=== PATIENT | male | born 1995 | race Caucasian/White ===

== ENCOUNTER 2018-09-21 08:29 | Inpatient (IN) | payer OTHER ==
[2018-09-21 09:11] VITALS: BMI 21.2
--- NOTE | 2018-09-21 09:31 | HP ---
CIWA Score Nausea/Vomitin-Cont. Nausea/Vomiting Muscle Tremors: 1-None Visible, but [place] Anxiety: 2 Agitation: 1-Slight > Activity Paroxysmal Sweats: 1-Minimal Palms Moist Orientation: 0-Oriented Tacttile Disturbances: 0-None Auditory Disturbances: 0-None Visual Disturbances: 0-None Headache: 0-None Present CIWA-Ar Total Score: 12 - Admission Criteria OASAS Guidelines: Admission for Medically Managed Detox: Requires at least one of the followin. CIWA greater than 12 2. Seizures within the past 24 hours 3. Delirium tremens within the past 24 hours 4. Hallucinations within the past 24 hours 5. Acute intervention needed for co occurring medical disorder 6. Acute intervention needed for co occurring psychiatric disorder 7. Severe withdrawal that cannot be handled at a lower level of care (continued vomiting, continued diarrhea, abnormal vital signs) requiring intravenous medication and/or fluids 8. Patient presents the following: CIWA greater than 12 Admission Criteria Met: Admission criteria met Admission ROS S - [facility] Chief Complaint: I need to stop using alchol and crack and get my life together Allergies/Adverse Reactions: Allergies Allergy/AdvReac Type Severity Reaction Status Date / Time divalproex sodium Allergy Severe Verified 09/21/18 08:51 [From Depakote] Penicillins Allergy Severe Verified 09/21/18 08:51 amoxicillin Allergy Intermediate Rash Verified 09/21/18 08:49 History of Present Illness: 23 y/o m pt with a 10 yr h/o of alcohol use/dependency. pt states he began drinking heavily at age 15. drinking 6-12 beers/day he was also occasionally drinking 1-2 shoots of vodka. pt denies any blackouts or sz's but states he has developed shakes and sweats in the morning . Pt has attended detox and rehab on 2-3 occasions last being August 2018. Now pt is seeking to d/c alcohol use. Exam Limitations: No Limitations - Ebola screening Have you traveled outside of the country in the last 21 days: No Have you had contact with anyone from an Ebola affected area: No Do you have a fever: No - Review of Systems Constitutional: Night Sweats EENT: reports: No Symptoms Reported Respiratory: reports: No Symptoms reported Cardiac: reports: No Symptoms Reported GI: reports: Vomiting (assoc with etoh intake), Indigestion : reports: No Symptoms Reported Musculoskeletal: reports: No Symptoms Reported Integumentary: reports: Sweating Neuro: reports: Tremors Endocrine: reports: No Symptoms Reported Hematology: reports: No Symptoms Reported Psychiatric: reports: Agitated, Anxious, Depressed Other Systems: Reviewed and Negative Patient History - Patient Medical History Hx Anemia: No Hx Asthma: No Hx Chronic Obstructive Pulmonary Disease (COPD): No Hx Cancer: No Hx Cardiac Disorders: No Hx Congestive Heart Failure: No Hx Hypertension: No Hx Hypercholesterolemia: No Hx Pacemaker: No HX Cerebrovascular Accident: No Hx Seizures: No Hx Dementia: No Hx Diabetes: No Hx Gastrointestinal Disorders: No Hx Liver Disease: No Hx Genitourinary Disorders: No Hx Sexually Transmitted Disorders: No Hx Renal Disease (ESRD): No Hx Thyroid Disease: No Hx Human Immunodeficiency Virus (HIV): No (neg. on July) Hx Hepatitis C: No Hx Depression: Yes (welbutrin 150mg daily ) Hx Suicide Attempt: No Hx Bipolar Disorder: Yes Hx Schizophrenia: No Other Medical History: legally blind OS -congenital - Patient Surgical History Hx Genitourinary Surgery: Yes (repair of undesended tesicles - mila at age 10 ) Other Surgical History: cryosurgery OS - PPD History Previous Implant?: Yes Documented Results: Negative w/o proof Implanted On Prior [facility] Admission?: No PPD to be Administered?: Yes - Reproductive History Patient is a Female of Child Bearing Age (11 -55 yrs old): No - Smoking Cessation Smoking history: Current every day smoker Have you smoked in the past 12 months: Yes Aproximately how many cigarettes per day: 10 Cigars Per Day: 0 Hx Chewing Tobacco Use: No Initiated information on smoking cessation: Yes 'Breaking Loose' booklet given: 09/21/18 - Substance & Tx. History Hx Alcohol Use: Yes Hx Substance Use: Yes Substance Use Type: Alcohol, Cocaine Hx Substance Use Treatment: Yes ([facility]- detox/rehab August 08, 2018 ) - Substances abused Alcohol Substance route: Oral Amount used: 6pk Beer & 1 ,5th Liquor Age of first use: 13 Date of last use: 09/20/18 Crack Substance route: Smoking Frequency: Daily Amount used: $200-200/day Age of first use: 15 Date of last use: 09/20/18 Marijuana/Hashish Substance route: Smoking Frequency: Daily Amount used: one gm/day Age of first use: 13 Date of last use: 09/13/18 Family Disease History - Family Disease History Family History: Denies Admission Physical Exam [facility] - Vital Signs Vital Signs: Vital Signs - 24 hr 09/21/18 08:45 Temperature 97.4 F L Pulse Rate 52 L Respiratory 16 Rate Blood Pressure 110/70 23 y/o thin male pt aox3 in nad , cooperative with exam. - Physical General Appearance: Yes: Thin, Anxious HEENTM: Yes: EOMI, Hearing grossly Normal, Normocephalic, Normal Voice, SAVANA, Other (OS only able to make out colors and shapes.) Respiratory: Yes: Within Normal Limits, Chest Non-Tender, Lungs Clear, Normal Breath Sounds, No Respiratory Distress Neck: Yes: Within Normal Limits, No masses,lesions,Nodules, Supple, Trachea in good position Breast: Yes: Within Normal Limits, No Discharge Cardiology: Yes: Within Normal Limits, Regular Rhythm, Regular Rate, S1, S2 Abdominal: Yes: Non Tender, Flat, Soft, Increased Bowel Sounds Genitourinary: Yes: Within Normal Limits Back: Yes: Within Normal Limits, Normal Inspection Musculoskeletal: Yes: Within Normal Limits Extremities: Yes: Other (mild tremor felt) Neurological: Yes: retail bakery manager II-XII NML intact (except OS vision), Fully Oriented, Alert, Motor Strength 5/5, Normal Mood/Affect, Normal Response Integumentary: Yes: Moist Lymphatic: Yes: Within Normal Limits - Diagnostic (1) Chronic alcoholism Current Visit: Yes Status: Chronic (2) Crack cocaine use Current Visit: Yes Status: Chronic (3) Cannabis abuse Current Visit: Yes Status: Chronic (4) Blindness of left eye Current Visit: Yes Status: Acute (5) Nicotine dependence Current Visit: Yes Status: Chronic Qualifiers: Nicotine product type: cigarettes Substance use status: uncomplicated Qualified Code(s): F17.210 - Nicotine dependence, cigarettes, uncomplicated Cleared for Admission [facility] - Detox or Rehab [facility] Level of Care: Medically Managed Detox Regimen/Protocol: Valium Inpatient Rehab Admission - Rehab Decision to Admit Inpatient rehab admission?: No - Initial Determination Are CD services needed?: Yes Free of communicable disease: Yes Not in need of hospitalization: No - Rehab Admission Criteria Previous failed treatment: No Poor recovery environment: No Comorbidities: No Lacks judgement: No Patient is meeting Inpatient Rehab admission criteria:: Yes
[2018-09-21] MEDS ORDERED: MAG HYDROX/AL HYDROX/SIMETH 30 ML UNIT-DOSE CUP PO PRN (10:01)
[2018-09-21] MEDS ORDERED: ACETAMINOPHEN 325 MG TABLET (FP) PO PRN ×2 (10:01)
[2018-09-21] MEDS ORDERED: MAGNESIUM HYDROX 2400MG/30ML ORAL SUSPENSION 30 ML CUP PO PRN (10:01)
[2018-09-21] MEDS ORDERED: IBUPROFEN 400 MG TABLET (FP) PO PRN (10:01)
[2018-09-21] MEDS ORDERED: BISMUTH SUBSALICYLATE 262 MG/15 ML BTL PO PRN (10:01)
[2018-09-21] MEDS ORDERED: hydrOXYzine HCL 25 MG TABLET (FP) PO PRN (10:01)
[2018-09-21] MEDS ORDERED: MENTHOL/PHENOL 1 EACH UD MM PRN (10:01)
[2018-09-21] MEDS ORDERED: MELATONIN 5 MG TABLETS PO PRN (10:01)
[2018-09-21] MEDS ORDERED: diazePAM 5 MG TABLET PO PRN (10:01)
[2018-09-21] MEDS ORDERED: MAGNESIUM CITRATE 300 ML BOTTLE PO PRN (10:01)
[2018-09-21] MEDS ORDERED: METHOCARBAMOL 500 MG TABLET PO PRN (10:01)
[2018-09-21 12:53] LABS: HEMATOCRIT 42.5 % (35.4-49); HEMOGLOBIN 14.2 GM/dL (11.7-16.9); MCH 31.6 pg (25.7-33.7); MCHC 33.5 g/dl (32.0-35.9); MEAN CELL VOLUME 94.2 fl (80-96); MEAN PLT VOLUME 7.1 fl (7.5-11.1); PLATELET COUNT 194 K/MM3 (134-434); RBC 4.51 M/mm3 (4.00-5.60); RDW 13.1 % (11.9-15.9); WHITE BLOOD COUNT 5.8 K/mm3 (4.0-10.0)
[2018-09-21 12:57] LABS: BLOOD UREA NITROGEN 20.5 mg/dL (7-18); CALCIUM 9.1 mg/dL (8.5-10.1); CREATININE 1.1 mg/dL (0.55-1.3); POTASSIUM 4.2 mmol/L (3.5-5.1)
[2018-09-21] MEDS: diazePAM 5 MG TABLET PO SCH ×2 (13:44→22:45)
[2018-09-21 16:30] LABS: URINE APPEARANCE CLEAR; URINE BILIRUBIN NEGATIVE (NEGATIVE); URINE COLOR YELLOW; URINE GLUCOSE (UA) NEGATIVE (NEGATIVE); URINE KETONE NEGATIVE (NEGATIVE); URINE LEUK ESTERASE NEGATIVE (NEGATIVE); URINE NITRITE NEGATIVE (NEGATIVE); URINE PROTEIN NEGATIVE (NEGATIVE)
[2018-09-21] MEDS: THIAMINE HCL 100 MG TABLET (FP) PO SCH (22:45)
[2018-09-22] MEDS: diazePAM 5 MG TABLET PO SCH ×3 (05:47→22:12)
--- NOTE | 2018-09-22 09:59 | CONSULT ---
[facility] Psychiatric Consult - Data Date of interview: 09/22/18 Admission source: [facility] [place] Identifying data: Mr Cross is a 23 years old single male, unemployedwith no source of income, homeless seeking detox treatment for alcohol , cocaine and cannabis Substance Abuse History: Reports history of alcohol, crack cocaine and marijuana use. Refer to addiction counselor's summary for further information Medical History: Significant for history congenital legal blindness right eye and gusurgery for undescented testes(bilaterally) at age 10. Smokes 10 cigarettes daily Psychiatric History: Reports that his first psychiatric hospitalization was at age 10 or 11 when he was admitted to [facility], diagnosed with Bipolar and prescribed medication. Reports 3 subsequent admissions all to [facility] with most recent one in 2011. Reports non adherent to outpatient psychiatric services and medications. Most recent psychiatric treatment was in August 2018 while at [facility] in [place], [place] for rehab(18 days). He was discharged on Wellbutrin XL 150 mg/day but stopped taking it. This is confirmed by verification of script for 28 days supply of that medication filled at [facility]. Denies previous suicidal atempt. At present, denies experiencing psychotic, manic or depressive symptoms, S/H ideations. However, feels mildly irritable. Patient is unwilling to resume medication Physical/Sexual Abuse/Trauma History: Denies history of emotional, physical or sexual abuse as well as DV relationship Additional Comment: Reports history of multiple previous misdemeanor arrsts. Mental Status Exam - Mental Status Exam Alert and Oriented to: Time, Place, Person Cognitive Function: Fair Patient Appearance: Well Groomed Mood: Anxious Affect: Appropriate Patient Behavior: Cooperative Speech Pattern: Clear Voice Loudness: Normal Thought Process: Intact, Goal Oriented Hallucinations: Denies Suicidal Ideation: Denies Homicidal Ideation: Denies Insight/Judgement: Poor Sleep: Well Appetite: Good Muscle strength/Tone: Normal Gait/Station: Normal Psychiatric Findings - Problem List ([place] 1, 2,3) (1) Bipolar disorder Current Visit: Yes Status: Chronic (2) Substance induced mood disorder Current Visit: Yes Status: Acute (3) Alcohol dependence with uncomplicated withdrawal Current Visit: Yes Status: Acute (4) Cocaine dependence Current Visit: Yes Status: Acute (5) Cannabis dependence Current Visit: Yes Status: Acute (6) Nicotine dependence Current Visit: Yes Status: Chronic (7) Blindness of left eye Current Visit: Yes Status: Chronic - Initial Treatment Plan Initial Treatment Plan: Continue inpatient detoxification
[2018-09-22] MEDS: PRENATAL VITAMINS W/ FOLIC ACID TABLET (FP) PO SCH (10:14)
--- NOTE | 2018-09-22 15:11 | PN ---
[facility] Progress Note Note: pt c/o insomnia; and needs something to help him sleep. pt was ordered trazadone 50mg only while he is our patient. will f/u tomorrow.
[2018-09-22] MEDS ORDERED: traZODone HCL 50 MG TABLET (FP) PO SCH (22:00)
[2018-09-22] MEDS: THIAMINE HCL 100 MG TABLET (FP) PO SCH (22:12)
[2018-09-23] MEDS ORDERED: diazePAM 5 MG TABLET PO SCH (06:00)
[2018-09-23] MEDS: PRENATAL VITAMINS W/ FOLIC ACID TABLET (FP) PO SCH (10:34)
--- NOTE | 2018-09-23 12:14 | PN ---
[facility] CIWA - CIWA Score Nausea/Vomitin-No Nausea/No Vomiting Muscle Tremors: 3 Anxiety: 3 Agitation: 3 Paroxysmal Sweats: 2 Orientation: 0-Oriented Tacttile Disturbances: 0-None Auditory Disturbances: 0-None Visual Disturbances: 0-None Headache: 0-None Present CIWA-Ar Total Score: 11 S Progress Note (SOAP) Subjective: tired restless sweats body aches Objective: 09/22/18 12:12 Vital Signs (72 hours) 09/21/18 09/21/18 09/21/18 08:45 13:22 17:17 Temperature 97.4 F L 98.1 F 97.9 F Pulse Rate 52 L 82 64 Respiratory 16 18 18 Rate Blood Pressure 110/70 131/66 115/65 09/21/18 09/22/18 09/22/18 22:16 00:30 03:30 Temperature 98.1 F Pulse Rate 53 L Respiratory 18 18 18 Rate Blood Pressure 121/75 09/22/18 09/22/18 09/22/18 06:00 09:57 18:00 Temperature 97.7 F 97.1 F L 97.7 F Pulse Rate 45 L 65 60 Respiratory 18 16 16 Rate Blood Pressure 133/57 L 103/53 L 136/76 09/22/18 09/23/18 09/23/18 20:31 03:30 06:33 Temperature 97.9 F 97.2 F L Pulse Rate 65 57 L Respiratory 18 18 16 Rate Blood Pressure 130/60 110/55 L 09/23/18 09:22 Temperature 97.7 F Pulse Rate 67 Respiratory 18 Rate Blood Pressure 124/62 Laboratory Tests 09/21/18 09/21/18 09/21/18 11:00 11:00 11:00 WBC 5.8 RBC 4.51 Hgb 14.2 Hct 42.5 MCV 94.2 MCH 31.6 MCHC 33.5 RDW 13.1 Plt Count 194 MPV 7.1 L Sodium 141 Potassium 4.2 Chloride 105 Carbon Dioxide 30 Anion Gap 6 L BUN 20.5 H Creatinine 1.1 Est GFR (CKD-EPI)AfAm 109.09 Est GFR (CKD-EPI)NonAf 94.12 Random Glucose 99 Calcium 9.1 Urine Color Urine Appearance Urine pH Ur Specific [place] Urine Protein Urine Glucose (UA) Urine Ketones Urine Blood Urine Nitrite Urine Bilirubin Urine Urobilinogen Ur Leukocyte Esterase RPR Titer Nonreactive 09/21/18 15:00 WBC RBC Hgb Hct MCV MCH MCHC RDW Plt Count MPV Sodium Potassium Chloride Carbon Dioxide Anion Gap BUN Creatinine Est GFR (CKD-EPI)AfAm Est GFR (CKD-EPI)NonAf Random Glucose Calcium Urine Color Yellow Urine Appearance Clear Urine pH 6.0 Ur Specific [place] 1.031 Urine Protein Negative Urine Glucose (UA) Negative Urine Ketones Negative Urine Blood Negative Urine Nitrite Negative Urine Bilirubin Negative Urine Urobilinogen 1.0 Ur Leukocyte Esterase Negative RPR Titer aaox3 ambulating no acute distress Assessment: 09/22/18 12:13 withdrawals Plan: continue detox increase fluids
--- NOTE | 2018-09-23 12:16 | PN ---
S CIWA - CIWA Score Nausea/Vomitin-No Nausea/No Vomiting Muscle Tremors: 3 Anxiety: 1-Mildly Anxious Agitation: 2 Paroxysmal Sweats: 1-Minimal Palms Moist Orientation: 0-Oriented Tacttile Disturbances: 0-None Auditory Disturbances: 0-None Visual Disturbances: 0-None Headache: 0-None Present CIWA-Ar Total Score: 7 [facility] Progress Note (SOAP) Subjective: sweats tired interrupted sleep agitation Objective: 09/23/18 12:15 Vital Signs Temperature 97.7 F 09/23/18 09:22 Pulse Rate 67 09/23/18 09:22 Respiratory Rate 18 09/23/18 09:22 Blood Pressure 124/62 09/23/18 09:22 O2 Sat by Pulse Oximetry (%) Laboratory Tests 09/21/18 09/21/18 09/21/18 11:00 11:00 11:00 WBC 5.8 RBC 4.51 Hgb 14.2 Hct 42.5 MCV 94.2 MCH 31.6 MCHC 33.5 RDW 13.1 Plt Count 194 MPV 7.1 L Sodium 141 Potassium 4.2 Chloride 105 Carbon Dioxide 30 Anion Gap 6 L BUN 20.5 H Creatinine 1.1 Est GFR (CKD-EPI)AfAm 109.09 Est GFR (CKD-EPI)NonAf 94.12 Random Glucose 99 Calcium 9.1 Urine Color Urine Appearance Urine pH Ur Specific [place] Urine Protein Urine Glucose (UA) Urine Ketones Urine Blood Urine Nitrite Urine Bilirubin Urine Urobilinogen Ur Leukocyte Esterase RPR Titer Nonreactive 09/21/18 15:00 WBC RBC Hgb Hct MCV MCH MCHC RDW Plt Count MPV Sodium Potassium Chloride Carbon Dioxide Anion Gap BUN Creatinine Est GFR (CKD-EPI)AfAm Est GFR (CKD-EPI)NonAf Random Glucose Calcium Urine Color Yellow Urine Appearance Clear Urine pH 6.0 Ur Specific [place] 1.031 Urine Protein Negative Urine Glucose (UA) Negative Urine Ketones Negative Urine Blood Negative Urine Nitrite Negative Urine Bilirubin Negative Urine Urobilinogen 1.0 Ur Leukocyte Esterase Negative RPR Titer aaox3 ambulating no acute distress Assessment: 09/23/18 12:15 withdrawal sx Plan: continue detox increase fluids
[2018-09-23 17:16] VITALS: BP 129/69; PULSE 65; TEMP 97.2
--- NOTE | 2018-09-23 17:53 | DS ---
[facility] Detox Discharge Summary Admission Date: 09/21/18 Discharge Date: 09/23/18 - History Present History: Alcohol Dependence Additional Comments: Admitted w/ alcohol withdrawal symptoms. Pertinent Past History: 23 y/o with a 10 yr h/o of alcohol use/dependency and cocaine use disorder. - Physical Exam Results Vital Signs: Vital Signs Temperature 97.2 F L 09/23/18 17:15 Pulse Rate 65 09/23/18 17:15 Respiratory Rate 18 09/23/18 17:15 Blood Pressure 129/69 09/23/18 17:15 O2 Sat by Pulse Oximetry (%) Pertinent Admission Physical Exam Findings: 23 y/o presented w/ alcohol withdrawal symptoms and admitted to detox. Co- occurring cocaine use disorder. Laboratory Last Values WBC 5.8 K/mm3 (4.0-10.0) 09/21/18 11:00 RBC 4.51 M/mm3 (4.00-5.60) 09/21/18 11:00 Hgb 14.2 GM/dL (11.7-16.9) 09/21/18 11:00 Hct 42.5 % (35.4-49) 09/21/18 11:00 MCV 94.2 fl (80-96) 09/21/18 11:00 MCH 31.6 pg (25.7-33.7) 09/21/18 11:00 MCHC 33.5 g/dl (32.0-35.9) 09/21/18 11:00 RDW 13.1 % (11.9-15.9) 09/21/18 11:00 Plt Count 194 K/MM3 (134-434) 09/21/18 11:00 MPV 7.1 fl (7.5-11.1) L 09/21/18 11:00 Sodium 141 mmol/L (136-145) 09/21/18 11:00 Potassium 4.2 mmol/L (3.5-5.1) 09/21/18 11:00 Chloride 105 mmol/L (98-107) 09/21/18 11:00 Carbon Dioxide 30 mmol/L (21-32) 09/21/18 11:00 Anion Gap 6 MMOL/L (8-16) L 09/21/18 11:00 BUN 20.5 mg/dL (7-18) H 09/21/18 11:00 Creatinine 1.1 mg/dL (0.55-1.3) 09/21/18 11:00 Est GFR (CKD-EPI)AfAm 109.09 09/21/18 11:00 Est GFR (CKD-EPI)NonAf 94.12 09/21/18 11:00 Random Glucose 99 mg/dL (74-106) 09/21/18 11:00 Calcium 9.1 mg/dL (8.5-10.1) 09/21/18 11:00 Urine Color Yellow 09/21/18 15:00 Urine Appearance Clear 09/21/18 15:00 Urine pH 6.0 (5.0-8.0) 09/21/18 15:00 Ur Specific [place] 1.031 (1.010-1.035) 09/21/18 15:00 Urine Protein Negative (NEGATIVE) 09/21/18 15:00 Urine Glucose (UA) Negative (NEGATIVE) 09/21/18 15:00 Urine Ketones Negative (NEGATIVE) 09/21/18 15:00 Urine Blood Negative (NEGATIVE) 09/21/18 15:00 Urine Nitrite Negative (NEGATIVE) 09/21/18 15:00 Urine Bilirubin Negative (NEGATIVE) 09/21/18 15:00 Urine Urobilinogen 1.0 mg/dL (0.2-1.0) 09/21/18 15:00 Ur Leukocyte Esterase Negative (NEGATIVE) 09/21/18 15:00 RPR Titer Nonreactive (NONREACTIVE) 09/21/18 11:00 Labs reviewed. - Treatment Hospital Course: Detox Protocol Followed (Did not complete detox.) - Medication Discharge Medications: Ambulatory Orders Bupropion HCl [Wellbutrin -] 150 mg PO DAILY 09/21/18 - Diagnosis (1) Alcohol dependence with uncomplicated withdrawal Status: Acute (2) Cocaine dependence Status: Chronic Qualifiers: Substance use status: uncomplicated Qualified Code(s): F14.20 - Cocaine dependence, uncomplicated (3) Nicotine dependence Status: Chronic Qualifiers: Nicotine product type: cigarettes Substance use status: uncomplicated Qualified Code(s): F17.210 - Nicotine dependence, cigarettes, uncomplicated - AMA Did Patient Leave Against Medical Advice: Yes (Patient refused to complete detox , despite encouragement.)
[2018-09-24] MEDS ORDERED: diazePAM 5 MG TABLET PO ONE (06:00)
== END 2018-09-23 18:30 | disposition left against medical advice (07) | DRG 770 ==
LOC: YASAS 08:29 → Y6N 10:41
PROVIDERS: ADMIT Surgery; ATTEND Surgery
PROC: HZ2ZZZZ Detoxification Services for Substance Abuse Treatment (ICD-10-PCS; principal; 2018-09-21)
DX: F10.230 Alcohol dependence with withdrawal, uncomplicated (principal); F14.20 Cocaine dependence, uncomplicated; F12.20 Cannabis dependence, uncomplicated; F17.210 Nicotine dependence, cigarettes, uncomplicated; F31.9 Bipolar disorder, unspecified; F19.24 Other psychoactive substance dependence with psychoactive substance-induced mood disorder; H54.40 Blindness, one eye, unspecified eye; Z88.0 Allergy status to penicillin; Z88.1 Allergy status to other antibiotic agents
CPT/HCPCS: 36415; 80048; 81003; 85027; 86480; 86593